=== PATIENT | male | born 1980 | race Caucasian/White ===

== ENCOUNTER 2017-05-29 16:42 | Emergency (ER) | payer MEDICAID | END 2017-05-29 17:00 | disposition short-term general hospital (02) | LOC: ER 16:42 | DX: R19.7 Diarrhea, unspecified (principal) ==

== ENCOUNTER 2017-11-27 21:30 | Emergency (ER) | payer MEDICAID ==
--- NOTE | 2017-11-27 22:30 | ED Physician Chart ---
ED Chief Complaint/HPI - Patient Information Date Seen:: 11/27/17 Time Seen:: 22:15 Chief Complaint:: cough History of Present Illness:: Patient complains of cough, difficulty swallowing and decreased urinary stream for 4 days. Patient did not take his temperature. Allergies:: Allergies Allergy/AdvReac Type Severity Reaction Status Date / Time amoxicillin Allergy Verified 08/16/16 16:24 azithromycin Allergy Verified 08/16/16 16:24 escitalopram [From Lexapro] Allergy Verified 08/16/16 16:24 lorazepam Allergy Verified 08/16/16 16:24 sulfamethizole Allergy Verified 08/16/16 16:24 Vitals:: Vital Signs - 8 hr 11/27/17 21:30 Temp 98.3 F HR 80 RR 16 BP 113/72 O2 Sat % 100 Historian:: Patient Review:: Nurse's Note Reviewed ED Review of Systems - Review of Systems General/Constitutional: No fever, No chills Skin: No skin lesions Head: No headache Eyes: No loss of vision ENT: No earache, Other (difficulty swallowing) Neck: No neck pain Cardio Vascular: No chest pain, No palpitations Pulmonary: No SOB, Cough GI: No nausea, No vomiting, No diarrhea G/U: No dysuria, No frequency, No nacturia Musculoskeletal: No bone or joint pain Endocrine: Other (decreased urinary stream) Psychiatric: No prior psych history Family Medical History - Family Member Mother History Unknown: Yes ED Physical Exam - Physical Examination General/Constitutional: Well-developed, well-nourished, Alert, No distress Head: Atraumatic Eyes: Lids, conjuctiva normal, PERRL Skin: Nl inspection, No rash, No skin lesions, No ecchymosis ENMT: External ears, nose nl, TM canals nl Neck: No nuchal rigidity Respiratory: Nl effort/Exclusion, Clear to Auscultation Cardio Vascular: RRR, No murmur, gallop, rubs GI: No tenderness/rebounding/guarding, No organomegaly : No CVA tenderness Extremities: Normal digits & nails Neuro/Psych: No focal deficits Misc: No paraspinal tenderness ED Labs/Radiology/EKG Results - Lab Results Results: Laboratory Results - last 24 hr 11/27/17 11/27/17 11/27/17 22:30 22:38 22:38 WBC 7.2 RBC 4.90 Hgb 14.2 Hct 42.8 MCV 87.4 MCH 29.0 MCHC Differential 33.2 RDW 13.0 Plt Count 171 MPV 7.3 Sodium 134 L Potassium 4.2 Chloride 106 Carbon Dioxide 19.9 L Anion Gap 12.3 BUN 26 H Creatinine 1.6 H Est GFR ( Amer) > 60.0 Est GFR (Non-Af Amer) 51.4 BUN/Creatinine Ratio 16.3 Glucose 119 H Calcium 9.4 Magnesium 1.8 L Urine Source CLEAN C Urine Color YELLOW Urine Clarity CLEAR Urine pH 7.5 Ur Specific [place] 1.010 Urine Protein NEGATIVE Urine Glucose (UA) NEGATIVE Urine Ketones NEGATIVE Urine Blood NEGATIVE Urine Nitrate NEGATIVE Urine Bilirubin NEGATIVE Urine Urobilinogen 0.2 Ur Leukocyte Esterase NEGATIVE Urine RBC NONE SEEN Urine WBC 0-2 Ur Epithelial Cells RARE Urine Bacteria FEW - Radiology Results Results: Chest x-ray negative ED Septic Shock - . Is Septic Shock (SBP<90, OR Lactate>4 mmol\L) present?: No - <6hrs of presentation: Vital Signs: Vital Signs - 8 hr 11/27/17 21:30 Temp 98.3 F HR 80 RR 16 BP 113/72 O2 Sat % 100 ED Reassessment (Disposition) - Reassessment Reassessment Condition:: Unchanged - Diagnosis Diagnosis:: Acute viral syndrome - Aftercare/Follow up Instructions Aftercare/Follow-Up Instructions:: Refer to Discharge Instructions - Patient Disposition Discharge/Transfer:: Home Condition at Disposition:: Stable, Unchanged
[2017-11-27 22:47] LABS: HEMATOCRIT 42.8 % (41.0-60); HEMOGLOBIN 14.2 gm/dL (12-16); MEAN CELL VOLUME 87.4 fl (80-99); MEAN CORPUSCULAR HGB CONC 33.2 pg (28.0-36.0); MEAN PLATELET VOLUME 7.3 fl; PLATELET COUNT 171 Th/cmm (150-400); WHITE BLOOD COUNT 7.2 Th/cmm (4.8-10.8)
[2017-11-27 22:47] LABS: URINE MICROSCOPIC INDICATED? YES; URINE SOURCE CLEAN C
[2017-11-27 23:01] LABS: ANION GAP 12.3 (7.0-16.0); BUN - UREA NITROGEN 26 mg/dL (7-25); CALCIUM SERUM 9.4 mg/dL (8.6-10.3); CARBON DIOXIDE 19.9 mEq/L (21.0-31.0); CHLORIDE 106 mEq/L (98-107); CREATININE - SERUM 1.6 mg/dL (0.7-1.3); GFR AFRICAN-AMERICAN > 60.0 ml/min (>90); GFR NON AFRICAN-AMERICAN 51.4 ml/min; GLUCOSE 119 mg/dL (70-105); MAGNESIUM 1.8 mg/dL (1.9-2.7); POTASSIUM SERUM 4.2 mEq/L (3.5-5.1); SODIUM SERUM 134 mEq/L (136-145)
[2017-11-27 23:05] LABS: URINE BILIRUBIN NEGATIVE (NEGATIVE); URINE BLOOD NEGATIVE (NEGATIVE); URINE GLUCOSE (UA) NEGATIVE (NEGATIVE); URINE KETONE NEGATIVE (NEGATIVE); URINE LEUKOCYTE ESTERASE NEGATIVE (NEGATIVE); URINE NITRATE NEGATIVE (NEGATIVE); URINE PH 7.5 (4.6 - 8.0); URINE PROTEIN NEGATIVE (NEGATIVE); URINE UROBILINOGEN 0.2 E.U./dL (0.2 - 1.0)
[2017-11-27 23:07] LABS: URINE BACTERIA FEW /hpf (NONE SEEN); URINE CLARITY CLEAR (CLEAR); URINE COLOR YELLOW; URINE EPITHELIAL CELLS RARE /lpf (FEW); URINE RBC NONE SEEN /hpf (0-5); URINE WBC 0-2 /hpf (0-5)
[2017-11-27 23:28] LABS: BAND NEUTROPHILE 2 % (0-10); EOSINOPHIL 1 % (0-5); LYMPHOCYTE 8 % (20-50); MONOCYTE 2 % (2-10); NEUTROPHILS 87 % (40-80); PLATELET ESTIMATE ADEQUATE (NORMAL); TOTAL CELLS COUNTED 100
--- NOTE | 2017-11-28 08:23 | Diagnostic Imaging Report ---
CHEST X-RAY: AP view INDICATION: Cough COMPARISON: None FINDINGS: Mild increased right basal lung markings are noted. No focal consolidation or effusions. Heart size is normal. Osseous structures are intact. Gas distended stomach is noted. IMPRESSION: Mild increased right basal lung markings favoring atelectatic changes. No focal consolidation is identified.
== END 2017-11-27 23:15 | disposition home or self-care (01) ==
LOC: ER 21:30
DX: B34.9 Viral infection, unspecified (principal); Z88.1 Allergy status to other antibiotic agents; Z88.2 Allergy status to sulfonamides; Z88.8 Allergy status to other drugs, medicaments and biological substances
CPT/HCPCS: 36415-UA; 71045-TC; 80048-TC; 81001-TC; 83735-TC; 85007-TC; 85027-TC

== ENCOUNTER 2018-01-22 20:18 | Emergency (ER) | payer MEDICAID ==
[2018-01-22 21:08] LABS: % BASOPHILS 1.5 % (0.0-2.0); % EOSINOPHILS 0.6 % (0.0-5.0); % LYMPHOCYTES 15.8 % (20.0-50.0); % MONOCYTES 9.2 % (2.0-10.0); % NEUTROPHILS 72.9 % (40.0-80.0); BASOPHILE ABSOLUTE 0.1 Th/cumm (0-0.2); HEMATOCRIT 44.7 % (41.0-60); HEMOGLOBIN 14.9 gm/dL (12-16); LYMPHOCYTE ABSOLUTE 0.9 Th/cmm (1.5-3.0); MEAN CELL VOLUME 85.5 fl (80-99); MEAN CORPUSCULAR HEMOGLOBIN 28.4 pg (26.0-30.0); MEAN CORPUSCULAR HGB CONC 33.2 pg (28.0-36.0); MEAN PLATELET VOLUME 7.6 fl; MONOCYTE ABSOLUTE 0.5 Th/cmm (0.3-1.0); PLATELET COUNT 185 Th/cmm (150-400); RED BLOOD COUNT 5.23 Mil/cmm (4.30-5.70); RED CELL DISTRIBUTION WIDTH 12.8 % (11.5-20.0); WHITE BLOOD COUNT 5.5 Th/cmm (4.8-10.8)
[2018-01-22 21:21] LABS: ALB/GLOB RATIO 1.8 (1.0-1.8); ANION GAP 14.4 (7.0-16.0); CALCIUM SERUM 10.1 mg/dL (8.6-10.3); CARBON DIOXIDE 19.2 mEq/L (21.0-31.0); CREATININE - SERUM 1.7 mg/dL (0.7-1.3); GFR NON AFRICAN-AMERICAN 47.9 ml/min; POTASSIUM SERUM 3.6 mEq/L (3.5-5.1); TOTAL PROTEIN,SERUM 7.8 gm/dL (6.0-8.3)
[2018-01-22 21:34] LABS: URINE MICROSCOPIC INDICATED? YES; URINE SOURCE CLEAN C
[2018-01-22 21:35] LABS: URINE BILIRUBIN NEGATIVE (NEGATIVE); URINE BLOOD NEGATIVE (NEGATIVE); URINE GLUCOSE (UA) NEGATIVE (NEGATIVE); URINE KETONE NEGATIVE (NEGATIVE); URINE LEUKOCYTE ESTERASE NEGATIVE (NEGATIVE); URINE NITRATE NEGATIVE (NEGATIVE); URINE PROTEIN TRACE mg/dL (NEGATIVE); URINE UROBILINOGEN 0.2 E.U./dL (0.2 - 1.0)
[2018-01-22 21:50] LABS: URINE CLARITY CLEAR (CLEAR); URINE COLOR YELLOW
[2018-01-22 21:51] LABS: URINE BACTERIA NONE SEEN /hpf (NONE SEEN); URINE EPITHELIAL CELLS NONE SEEN /lpf (FEW); URINE RBC NONE SEEN /hpf (0-5); URINE WBC NONE SEEN /hpf (0-5)
--- NOTE | 2018-01-22 21:57 | ED Physician Chart ---
ED Chief Complaint/HPI - Patient Information Date Seen:: 01/22/18 Time Seen:: 20:30 Chief Complaint:: stomach gurgling sensation occasionally History of Present Illness:: location: abdomen quality: stomach gurgling sensation severity: mild duration: several months context: pt with onset of stomach gurgling sensation for last several months. says the symptoms come and go. sometimes affected by what he eats. no vomiting, no diarrhea. normal bowel movements. says that when the gurgling occurs he feels like he doesnt want to eat and then a few hours later it will subside and he returns to normal eating. pt reports he has had a renal transplant. and goes to his transplant physician regularly every 3 months. also has a local physician at [facility]. went to the clinic today and was not seen because he says the clinic was too busy so decided to come to the ER for physician examination. pt reports no pain or abdominal discomfort on arrival to ER but gives history above. pt would like to get his labs checked to see if there are any abnormalities. no fever, no chest pain, no SOB. no hematuria, no dysuria. pt eats a varied diet of meats and fast foods, etc. mod factors: none assoc s/s: none Allergies:: Allergies Allergy/AdvReac Type Severity Reaction Status Date / Time amoxicillin Allergy Verified 08/16/16 16:24 azithromycin Allergy Verified 08/16/16 16:24 escitalopram [From Lexapro] Allergy Verified 08/16/16 16:24 lorazepam Allergy Verified 08/16/16 16:24 sulfamethizole Allergy Verified 08/16/16 16:24 Vitals:: Vital Signs - 8 hr 01/22/18 20:24 Temp 98.4 F HR 79 RR 18 BP 122/76 O2 Sat % 97 Historian:: Patient Review:: Nurse's Note Reviewed ED Review of Systems - Review of Systems General/Constitutional: No fever, No chills, No weight loss, No weakness, No diaphoresis, No edema, No loss of appetite Skin: No skin lesions, No rash, No bruising Head: No headache, No light-headedness Eyes: No loss of vision, No pain, No diplopia ENT: No earache, No nasal drainage, No sore throat, No tinnitus Neck: No neck pain, No swelling, No thyromegaly, No stiffness, No mass noted Cardio Vascular: No chest pain, No palpitations, No PND, No orthopnea, No edema Pulmonary: No SOB, No cough, No sputum, No wheezing GI: No nausea, No vomiting, No diarrhea, No pain, No melena, No hematochezia, No constipation, No hematemesis, Other (stomach gurgling sensation occasionally. ) G/U: No dysuria, No frequency, No hematuria Musculoskeletal: No bone or joint pain, No back pain, No muscle pain Endocrine: No polyuria, No polydipsia Psychiatric: No prior psych history, No depression, No anxiety, No suicidal ideation Hematopoietic: No bruising, No lymphadenopathy Allergic/Immuno: No urticaria, No angioedema Neurological: No syncope, No focal symptoms, No weakness, No paresthesia, No headache, No seizure, No dizziness, No confusion, No vertigo ED Past Medical History - Past Medical History Past Medical History: Dyslipidemia, PUD/GERD Social History: Non Smoker, No Alcohol, No Drug Use, Surgical History: other (renal transplant) Psychiatricy History: None Medication: Reviewed Family Medical History - Family Member Mother History Unknown: Yes ED Physical Exam - Physical Examination General/Constitutional: Awake, Well-developed, well-nourished, Alert, No distress, GCS 15, Non-toxic appearing, Ambulatory Head: Atraumatic Eyes: Lids, conjuctiva normal, PERRL, EOMI Skin: Nl inspection, No rash, No skin lesions, No ecchymosis, Well hydrated, No lymphadenopathy ENMT: External ears, nose nl, Nasal exam nl, Lips, teeth, gums nl Neck: Nontender, Full ROM w/o pain, No JVD, No nuchal rigidity, No bruit, No mass, No stridor Respiratory: Nl effort/Exclusion, Clear to Auscultation, No Wheeze/Rhonchi/Rales Cardio Vascular: RRR, No murmur, gallop, rubs, NL S1 S2 GI: No tenderness/rebounding/guarding, No organomegaly, Normal BS's, Nondistended, No mass/bruits, No McBurney tenderness : No CVA tenderness Extremities: No tenderness or effusion, Full ROM, normal strength in all extremities, No edema, Normal digits & nails Neuro/Psych: Alert/oriented Misc: Normal back, No paraspinal tenderness ED Labs/Radiology/EKG Results - Lab Results Results: Laboratory Tests 01/22/18 01/22/18 01/22/18 20:58 20:58 21:25 WBC 5.5 RBC 5.23 Hgb 14.9 Hct 44.7 MCV 85.5 MCH 28.4 MCHC Differential 33.2 RDW 12.8 Plt Count 185 MPV 7.6 Neutrophils % 72.9 Lymphocytes % 15.8 L Monocytes % 9.2 Eosinophils % 0.6 Basophils % 1.5 Sodium 138 Potassium 3.6 Chloride 108 H Carbon Dioxide 19.2 L Anion Gap 14.4 BUN 32 H Creatinine 1.7 H Est GFR ( Amer) 58.0 Est GFR (Non-Af Amer) 47.9 BUN/Creatinine Ratio 18.8 Glucose 95 Calcium 10.1 Total Bilirubin 1.0 AST 10 L ALT 8 Alkaline Phosphatase 65 Total Protein 7.8 Albumin 5.0 Globulin 2.8 Albumin/Globulin Ratio 1.8 Urine Source CLEAN C Urine Color YELLOW Urine Clarity CLEAR Urine pH 7.0 Ur Specific [place] 1.015 Urine Protein TRACE Urine Glucose (UA) NEGATIVE Urine Ketones NEGATIVE Urine Blood NEGATIVE Urine Nitrate NEGATIVE Urine Bilirubin NEGATIVE Urine Urobilinogen 0.2 Ur Leukocyte Esterase NEGATIVE Urine RBC NONE SEEN Urine WBC NONE SEEN Ur Epithelial Cells NONE SEEN Urine Bacteria NONE SEEN ED Septic Shock - . Is Septic Shock (SBP<90, OR Lactate>4 mmol\L) present?: No - <6hrs of presentation: Vital Signs: Vital Signs - 8 hr 01/22/18 20:24 Temp 98.4 F HR 79 RR 18 BP 122/76 O2 Sat % 97 ED Reassessment (Disposition) - Reassessment Reassessment:: pt in stable condition while in the ER. no vomiting, or diarrhea. no nausea. normal abdominal exam. normal bowel sounds. no tenderness. pt with no abdominal pain while in ER. Reassessment Condition:: Unchanged - Diagnosis Diagnosis:: episodic dyspepsia - Aftercare/Follow up Instructions Aftercare/Follow-Up Instructions:: Refer to Discharge Instructions Notes:: pt is advised to try one week trial of no meat and no dairy products to see if his regular diet is attributable to his symptoms. pt is also advised to go to clinic for recheck tomorrow. return sooner to ER for any worsening - Patient Disposition Discharge/Transfer:: Home Condition at Disposition:: Stable
== END 2018-01-22 22:00 | disposition home or self-care (01) ==
LOC: ER 20:18
DX: R10.13 Epigastric pain (principal); E78.5 Hyperlipidemia, unspecified; K21.9 Gastro-esophageal reflux disease without esophagitis; Z87.11 Personal history of peptic ulcer disease
CPT/HCPCS: 36415-UA; 80053-TC; 81001-TC; 85025-TC; Z7502

== ENCOUNTER 2018-01-25 16:54 | Emergency (ER) | payer MEDICAID ==
[2018-01-25] MEDS ORDERED: Sodium Chloride 0.9% 1,000 ML IV ONE (17:41)
--- NOTE | 2018-01-25 17:46 | ED Physician Chart ---
ED Chief Complaint/HPI - Patient Information Date Seen:: 01/25/18 Time Seen:: 17:30 Chief Complaint:: dehydration History of Present Illness:: Patient feels he is dehydrated although he does not provide any more specifics as for why. He does mention he has a decreased urinary stream and constipation. No vomiting. Allergies:: Allergies Allergy/AdvReac Type Severity Reaction Status Date / Time amoxicillin Allergy Verified 08/16/16 16:24 azithromycin Allergy Verified 08/16/16 16:24 escitalopram [From Lexapro] Allergy Verified 08/16/16 16:24 lorazepam Allergy Verified 08/16/16 16:24 sulfamethizole Allergy Verified 08/16/16 16:24 Vitals:: Vital Signs - 8 hr 01/25/18 17:04 Temp 98.2 F HR 82 RR 95 BP 109/80 O2 Sat % 96 Historian:: Patient Review:: Nurse's Note Reviewed, EMS run form Reviewed ED Review of Systems - Review of Systems General/Constitutional: No fever, No chills Skin: No skin lesions Head: No headache Eyes: No loss of vision ENT: No earache Neck: No neck pain, No swelling Cardio Vascular: No chest pain Pulmonary: No SOB GI: No nausea, No vomiting, Constipation G/U: No dysuria, Other (decreased urinary stream) Musculoskeletal: No bone or joint pain Endocrine: No polyuria Psychiatric: No prior psych history ED Past Medical History - Past Medical History Past Medical History: Other (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 ) Family History: Other (polycystic kidneys and hypertension) Social History: Non Smoker, No Alcohol Surgical History: other (dialysis shunt; renal transplant) Psychiatricy History: None Medication: Reviewed Family Medical History - Family Member Mother History Unknown: Yes ED Physical Exam - Physical Examination General/Constitutional: Well-developed, well-nourished, Alert, No distress Head: Atraumatic Eyes: Lids, conjuctiva normal, PERRL Skin: Nl inspection, No rash, No skin lesions, No ecchymosis ENMT: External ears, nose nl, Oropharynx nl, Tonsils nl Neck: No nuchal rigidity Respiratory: Nl effort/Exclusion, Clear to Auscultation, No Wheeze/Rhonchi/Rales Cardio Vascular: RRR, No murmur, gallop, rubs GI: No tenderness/rebounding/guarding Extremities: Normal digits & nails Neuro/Psych: Alert/oriented, No focal deficits ED Labs/Radiology/EKG Results - Lab Results Results: Laboratory Results - last 24 hr 01/25/18 01/25/18 17:55 17:55 WBC 5.2 RBC 5.10 Hgb 14.5 Hct 43.9 MCV 86.1 MCH 28.4 MCHC Differential 33.0 RDW 12.7 Plt Count 171 MPV 7.6 Neutrophils % 73.1 Lymphocytes % 14.6 L Monocytes % 9.3 Eosinophils % 1.4 Basophils % 1.6 Sodium 139 Potassium 3.7 Chloride 109 H Carbon Dioxide 18.7 L Anion Gap 15.0 BUN 26 H Creatinine 1.8 H Est GFR ( Amer) 54.3 Est GFR (Non-Af Amer) 44.9 BUN/Creatinine Ratio 14.4 Glucose 97 Calcium 10.1 ED Assessment - Assessment General Assessment: An intravenous line was started on the patient. However patient decided he wanted to leave before the liter of normal saline had infused. The intravenous line was removed and the patient left. ED Septic Shock - . Is Septic Shock (SBP<90, OR Lactate>4 mmol\L) present?: No - <6hrs of presentation: Vital Signs: Vital Signs - 8 hr 01/25/18 17:04 Temp 98.2 F HR 82 RR 95 BP 109/80 O2 Sat % 96 ED Reassessment (Disposition) - Reassessment Reassessment Condition:: Unchanged - Diagnosis Diagnosis:: Status post renal transplant; renal insufficiency - Patient Disposition Discharge/Transfer:: [place]/AWOL Condition at Disposition:: Stable, Unchanged
[2018-01-25 18:04] LABS: % BASOPHILS 1.6 % (0.0-2.0); % EOSINOPHILS 1.4 % (0.0-5.0); % LYMPHOCYTES 14.6 % (20.0-50.0); % MONOCYTES 9.3 % (2.0-10.0); % NEUTROPHILS 73.1 % (40.0-80.0); BASOPHILE ABSOLUTE 0.1 Th/cumm (0-0.2); EOSINOPHILE ABSOLUTE 0.1 Th/cmm (0.1-0.4); HEMATOCRIT 43.9 % (41.0-60); HEMOGLOBIN 14.5 gm/dL (12-16); LYMPHOCYTE ABSOLUTE 0.8 Th/cmm (1.5-3.0); MEAN CELL VOLUME 86.1 fl (80-99); MEAN CORPUSCULAR HEMOGLOBIN 28.4 pg (26.0-30.0); MEAN PLATELET VOLUME 7.6 fl; MONOCYTE ABSOLUTE 0.5 Th/cmm (0.3-1.0); NEUTROPHILE ABSOLUTE 3.7 Th/cmm (1.8-8.0); PLATELET COUNT 171 Th/cmm (150-400); RED CELL DISTRIBUTION WIDTH 12.7 % (11.5-20.0); WHITE BLOOD COUNT 5.2 Th/cmm (4.8-10.8)
[2018-01-25 18:17] LABS: CALCIUM SERUM 10.1 mg/dL (8.6-10.3); CARBON DIOXIDE 18.7 mEq/L (21.0-31.0); CREATININE - SERUM 1.8 mg/dL (0.7-1.3); GFR AFRICAN-AMERICAN 54.3 ml/min (>90); GFR NON AFRICAN-AMERICAN 44.9 ml/min; POTASSIUM SERUM 3.7 mEq/L (3.5-5.1)
== END 2018-01-25 19:15 | disposition left against medical advice (07) ==
LOC: ER 16:54
DX: N28.9 Disorder of kidney and ureter, unspecified (principal); Z94.0 Kidney transplant status
CPT/HCPCS: 36415-UA; 80048-TC; 85025-TC; J7030; Z7502

== ENCOUNTER 2018-06-08 18:58 | Emergency (ER) | payer MEDICAID ==
[2018-06-08 20:09] LABS: URINE SOURCE CLEAN C
[2018-06-08 20:23] LABS: ALB/GLOB RATIO 2.1 (1.0-1.8); ALBUMIN 4.6 gm/dL (4.2-5.5); ALKALINE PHOSPHATASE 67 U/L (34-104); ANION GAP 13.2 (7.0-16.0); BILIRUBIN,TOTAL 0.7 mg/dL (0.3-1.0); BUN - UREA NITROGEN 22 mg/dL (7-25); CALCIUM SERUM 9.1 mg/dL (8.6-10.3); CARBON DIOXIDE 19.5 mEq/L (21.0-31.0); CHLORIDE 110 mEq/L (98-107); CREATININE - SERUM 1.6 mg/dL (0.7-1.3); GFR AFRICAN-AMERICAN > 60.0 ml/min (>90); GFR NON AFRICAN-AMERICAN 51.1 ml/min; GLUCOSE 117 mg/dL (70-105); MAGNESIUM 1.7 mg/dL (1.9-2.7); PHOSPHOROUS 2.2 mg/dL (2.5-5.0); POTASSIUM SERUM 3.7 mEq/L (3.5-5.1); SGOT 9 U/L (13-39); SGPT/ALT 7 U/L (7-52); SODIUM SERUM 139 mEq/L (136-145); TOTAL PROTEIN,SERUM 6.8 gm/dL (6.0-8.3)
[2018-06-08 20:29] LABS: AMPHETAMINE URINE NEGATIVE (NEGATIVE); BARBITURATES URINE NEGATIVE (NEGATIVE); BENZODIAZEPINES QUAL URINE NEGATIVE (NEGATIVE); CANNABINOID THC NEGATIVE (NEGATIVE); COCAINE METABOLITE QUAL URINE NEGATIVE (NEGATIVE); METHADONE URINE NEGATIVE (NEGATIVE); METHAMPHETAMINES QUAL URINE NEGATIVE (NEGATIVE); OPIATES (MORPHINE) QUAL. URINE NEGATIVE (NEGATIVE); PHENCYCLIDINE (PCP) URINE NEGATIVE (NEGATIVE); TRICYCLICS (TCA) QUAL. URINE NEGATIVE (NEGATIVE); URINE BILIRUBIN NEGATIVE (NEGATIVE); URINE BLOOD NEGATIVE (NEGATIVE); URINE CLARITY CLEAR (CLEAR); URINE COLOR YELLOW; URINE GLUCOSE (UA) NEGATIVE (NEGATIVE); URINE KETONE NEGATIVE (NEGATIVE)
[2018-06-08 20:30] LABS: URINE LEUKOCYTE ESTERASE NEGATIVE (NEGATIVE); URINE MICROSCOPIC INDICATED? NO; URINE NITRATE NEGATIVE (NEGATIVE); URINE PH 7.5 (4.6 - 8.0); URINE PROTEIN NEGATIVE (NEGATIVE); URINE UROBILINOGEN 0.2 E.U./dL (0.2 - 1.0)
[2018-06-08] MEDS ORDERED: Lactated Ringer 1,000 ML IV ONE (20:31)
[2018-06-08 21:24] LABS: HEMATOCRIT 39.5 % (41.0-60); HEMOGLOBIN 13.3 gm/dL (12-16); MEAN CELL VOLUME 86.4 fl (80-99); MEAN CORPUSCULAR HEMOGLOBIN 29.2 pg (26.0-30.0); MEAN CORPUSCULAR HGB CONC 33.8 pg (28.0-36.0); MEAN PLATELET VOLUME 7.1 fl; PLATELET COUNT 169 Th/cmm (150-400); RED BLOOD COUNT 4.57 Mil/cmm (4.30-5.70); RED CELL DISTRIBUTION WIDTH 13.1 % (11.5-20.0)
[2018-06-08 21:25] LABS: BAND NEUTROPHILE 1 % (0-10); BASOPHIL 0 % (0-3); EOSINOPHIL 0 % (0-5); LYMPHOCYTE 11 % (20-50); MONOCYTE 6 % (2-10); NEUTROPHILS 82 % (40-80); PLATELET ESTIMATE ADEQUATE (NORMAL); PLATELET MORPHOLOGY NORMAL (NORMAL)
[2018-06-08] MEDS ORDERED: Maalox 30 mL Cup PO ONE (21:27)
[2018-06-08] MEDS ORDERED: Maalox 30 mL Cup ONE (21:44)
--- NOTE | 2018-06-08 22:54 | ED Physician Chart ---
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 He says that every so often. Allergies:: Allergies Allergy/AdvReac Type Severity Reaction Status Date / Time amoxicillin Allergy Verified 08/16/16 16:24 azithromycin Allergy Verified 08/16/16 16:24 escitalopram [From Lexapro] Allergy Verified 08/16/16 16:24 lorazepam Allergy Verified 08/16/16 16:24 sulfamethizole Allergy Verified 08/16/16 16:24 Vitals:: Vital Signs - 8 hr 06/08/18 19:10 Temp 98.1 F HR 77 RR 18 BP 135/66 O2 Sat % 97 ED Review of Systems - Review of Systems General/Constitutional: No fever, No chills, No weight loss, Weakness, No diaphoresis, No edema, No loss of appetite Skin: No skin lesions, No rash, No bruising Head: No headache, No light-headedness Eyes: No loss of vision, No pain, No diplopia ENT: No earache, No nasal drainage, No sore throat, No tinnitus Neck: No neck pain, No swelling, No thyromegaly, No stiffness, No mass noted Cardio Vascular: No chest pain, No palpitations, No PND, No orthopnea, No edema Pulmonary: No SOB, No cough, No sputum, No wheezing GI: No nausea, No vomiting, No diarrhea, No pain, No melena, No hematochezia, No constipation, No hematemesis G/U: No dysuria, No frequency, No hematuria Musculoskeletal: No bone or joint pain, No back pain, No muscle pain Endocrine: No polyuria, No polydipsia Psychiatric: No prior psych history, No depression, No anxiety, No suicidal ideation Hematopoietic: No bruising, No lymphadenopathy Allergic/Immuno: No urticaria, No angioedema Neurological: No syncope, No focal symptoms, No weakness, No paresthesia, No headache, No seizure, No dizziness, No confusion, No vertigo Family Medical History - Family Member Mother History Unknown: Yes ED Physical Exam - Physical Examination General/Constitutional: Awake, Well-developed, well-nourished, Alert, No distress, GCS 15, Non-toxic appearing, Ambulatory Head: Atraumatic Eyes: Lids, conjuctiva normal, PERRL, EOMI Skin: Nl inspection, No rash, No skin lesions, No ecchymosis, No lymphadenopathy ENMT: External ears, nose nl, Nasal exam nl, Lips, teeth, gums nl Neck: Nontender, Full ROM w/o pain, No JVD, No nuchal rigidity, No bruit, No mass, No stridor Respiratory: Nl effort/Exclusion, Clear to Auscultation, No Wheeze/Rhonchi/Rales Cardio Vascular: RRR, No murmur, gallop, rubs, NL S1 S2 GI: No tenderness/rebounding/guarding, No organomegaly, No hernia, Normal BS's, Nondistended, No mass/bruits, No McBurney tenderness Other GI comments:: right lower groin scar from kidney transplant. : No CVA tenderness Extremities: No tenderness or effusion, Full ROM, normal strength in all extremities, No edema, Normal digits & nails Neuro/Psych: Alert/oriented, DTR's symmetric, Normal sensory exam, Normal motor strength, Judgement/insight normal, Mood normal, Normal gait, No focal deficits Misc: Normal back, No paraspinal tenderness ED Labs/Radiology/EKG Results - Lab Results Results: Laboratory Tests 06/08/18 06/08/18 06/08/18 19:56 19:56 20:00 WBC 5.0 RBC 4.57 Hgb 13.3 Hct 39.5 L MCV 86.4 MCH 29.2 MCHC Differential 33.8 RDW 13.1 Plt Count 169 MPV 7.1 Add Manual Diff YES Band Neutrophils % 1 Neutrophils (Manual) 82 H Lymphocytes 11 L Monocytes 6 Eosinophils 0 Basophils 0 Platelet Estimate ADEQUATE Platelet Morphology NORMAL RBC Morph Micro Appear NORMAL Sodium 139 Potassium 3.7 Chloride 110 H Carbon Dioxide 19.5 L Anion Gap 13.2 BUN 22 Creatinine 1.6 H Est GFR ( Amer) > 60.0 Est GFR (Non-Af Amer) 51.1 BUN/Creatinine Ratio 13.8 Glucose 117 H Calcium 9.1 Phosphorus 2.2 L Magnesium 1.7 L Total Bilirubin 0.7 AST 9 L ALT 7 Alkaline Phosphatase 67 Total Protein 6.8 Albumin 4.6 Globulin 2.2 Albumin/Globulin Ratio 2.1 H Urine Source CLEAN C Urine Color YELLOW Urine Clarity CLEAR Urine pH 7.5 Ur Specific [place] 1.015 Urine Protein NEGATIVE Urine Glucose (UA) NEGATIVE Urine Ketones NEGATIVE Urine Blood NEGATIVE Urine Nitrate NEGATIVE Urine Bilirubin NEGATIVE Urine Urobilinogen 0.2 Ur Leukocyte Esterase NEGATIVE Urine Opiates Screen Urine Methadone Screen Ur Barbiturates Screen Ur Tricyclics Screen Ur Phencyclidine Scrn Amphetamines Screen U Methamphetamines Scrn U Benzodiazepines Scrn U Cocaine Metab Screen U Cannabinoids Screen 06/08/18 20:00 WBC RBC Hgb Hct MCV MCH MCHC Differential RDW Plt Count MPV Add Manual Diff Band Neutrophils % Neutrophils (Manual) Lymphocytes Monocytes Eosinophils Basophils Platelet Estimate Platelet Morphology RBC Morph Micro Appear Sodium Potassium Chloride Carbon Dioxide Anion Gap BUN Creatinine Est GFR ( Amer) Est GFR (Non-Af Amer) BUN/Creatinine Ratio Glucose Calcium Phosphorus Magnesium Total Bilirubin AST ALT Alkaline Phosphatase Total Protein Albumin Globulin Albumin/Globulin Ratio Urine Source Urine Color Urine Clarity Urine pH Ur Specific [place] Urine Protein Urine Glucose (UA) Urine Ketones Urine Blood Urine Nitrate Urine Bilirubin Urine Urobilinogen Ur Leukocyte Esterase Urine Opiates Screen NEGATIVE Urine Methadone Screen NEGATIVE Ur Barbiturates Screen NEGATIVE Ur Tricyclics Screen NEGATIVE Ur Phencyclidine Scrn NEGATIVE Amphetamines Screen NEGATIVE U Methamphetamines Scrn NEGATIVE U Benzodiazepines Scrn NEGATIVE U Cocaine Metab Screen NEGATIVE U Cannabinoids Screen NEGATIVE ED Assessment - Assessment General Assessment: patient feels alot better after IV fluids. He has already urinated again. ED Septic Shock - . Is Septic Shock (SBP<90, OR Lactate>4 mmol\L) present?: No - <6hrs of presentation: Vital Signs: Vital Signs - 8 hr 06/08/18 19:10 Temp 98.1 F HR 77 RR 18 BP 135/66 O2 Sat % 97 ED Reassessment (Disposition) - Reassessment Reassessment Condition:: Improved - Diagnosis Diagnosis:: Dehydration Renal insufficiency with a slightly elevated creatinine of 1.6 (normal is up to 1.3) Low phosphorous Low magnesium - Aftercare/Follow up Instructions Aftercare/Follow-Up Instructions:: Refer to Discharge Instructions Notes:: please follow up with your primary care physician. Medication Prescribed:: none - Patient Disposition Discharge/Transfer:: Home Condition at Disposition:: Stable, Improved
== END 2018-06-08 23:55 | disposition home or self-care (01) ==
LOC: ER 18:58
DX: E86.0 Dehydration (principal); E61.2 Magnesium deficiency; E83.30 Disorder of phosphorus metabolism, unspecified; N28.9 Disorder of kidney and ureter, unspecified; R79.89 Other specified abnormal findings of blood chemistry; Z88.0 Allergy status to penicillin; Z88.2 Allergy status to sulfonamides; Z88.8 Allergy status to other drugs, medicaments and biological substances
CPT/HCPCS: 36415-UA; 80053-TC; 80307; 81003-TC; 83735-TC; 84100-TC; 85007-TC; 85025-TC; Z7502; Z7610

== ENCOUNTER 2018-06-13 19:24 | Emergency (ER) | payer MEDICAID ==
[2018-06-13] MEDS ORDERED: Sodium Chloride 0.9% 1,000 ML IV ONE (19:46)
--- NOTE | 2018-06-13 19:52 | ED Physician Chart ---
ED Chief Complaint/HPI - Patient Information Date Seen:: 06/13/18 Time Seen:: 19:30 Chief Complaint:: Weakness History of Present Illness:: onset x 3 days of generalized weakness and fatigue; pt denies trauma, LOC, ALOC , AMS, dizziness, paresthesias, vertigo, E/As, S/T, neck pain, cough, C/P, SOB, Abd. Pain, A/N/V/D/C, fever, chills, or urinary s/s; pt is eating and is urinating well; pt last urinated 1/2 hour [facility] Allergies:: Allergies Allergy/AdvReac Type Severity Reaction Status Date / Time amoxicillin Allergy Verified 06/13/18 19:42 azithromycin Allergy Verified 06/13/18 19:42 escitalopram [From Lexapro] Allergy Verified 06/13/18 19:42 lorazepam Allergy Verified 06/13/18 19:42 sulfamethizole Allergy Verified 06/13/18 19:42 Vitals:: Vital Signs - 8 hr 06/13/18 19:30 Temp 98.2 F HR 72 RR 18 BP 126/77 O2 Sat % 95 Historian:: Patient Review:: Nurse's Note Reviewed ED Review of Systems - Review of Systems General/Constitutional: No fever, No chills, No weight loss, Weakness, No diaphoresis, No edema, No loss of appetite Skin: No skin lesions, No rash, No bruising Head: No headache, No light-headedness Eyes: No loss of vision, No pain, No diplopia ENT: No earache, No nasal drainage, No sore throat, No tinnitus Neck: No neck pain, No swelling, No thyromegaly, No stiffness, No mass noted Cardio Vascular: No chest pain, No palpitations, No PND, No orthopnea, No edema Pulmonary: No SOB, No cough, No sputum, No wheezing GI: No nausea, No vomiting, No diarrhea, No pain, No melena, No hematochezia, No constipation, No hematemesis G/U: No dysuria, No frequency, No hematuria, No nacturia Musculoskeletal: No bone or joint pain, No back pain, No muscle pain Endocrine: No polyuria, No polydipsia Psychiatric: No prior psych history, No depression, No anxiety, No suicidal ideation, No homicidal ideation, No auditory hallucination, No visual hallucination Hematopoietic: No bruising, No lymphadenopathy Allergic/Immuno: No urticaria, No angioedema Neurological: No syncope, No focal symptoms, Weakness, No paresthesia, No headache, No seizure, No dizziness, No confusion, No vertigo ED Past Medical History - Past Medical History Obtainable: Yes Past Medical History: HTN, Dyslipidemia, ESRD Family History: HTN Social History: Non Smoker, No Alcohol, No Drug Use, Single Surgical History: other (Renal Transplant) Psychiatricy History: None Medication: Reviewed Family Medical History - Family Member Mother History Unknown: Yes ED Physical Exam - Physical Examination General/Constitutional: Awake, Well-developed, well-nourished, Alert, No distress, GCS 15, Non-toxic appearing, Ambulatory Head: Atraumatic Eyes: Lids, conjuctiva normal, PERRL, EOMI Skin: Nl inspection, No rash, No skin lesions, No ecchymosis, Well hydrated, No lymphadenopathy ENMT: External ears, nose nl, TM canals nl, Nasal exam nl, Lips, teeth, gums nl , Oropharynx nl, Tonsils nl Neck: Nontender, Full ROM w/o pain, No JVD, No nuchal rigidity, No bruit, No mass, No stridor Other Neck comments:: supple; no meningeal signs; no cervical tenderness; no bruits Respiratory: Nl effort/Exclusion, Clear to Auscultation, No Wheeze/Rhonchi/Rales Cardio Vascular: RRR, No murmur, gallop, rubs, NL S1 S2, Carotid/Femoral/Distal pulses equal bilaterally GI: No tenderness/rebounding/guarding, No organomegaly, No hernia, Normal BS's, Nondistended, No mass/bruits, No McBurney tenderness, Rectum exam nl Other GI comments:: no pulsatile masses : No CVA tenderness Extremities: No tenderness or effusion, Full ROM, normal strength in all extremities, No edema, Normal digits & nails Neuro/Psych: Alert/oriented, DTR's symmetric, Normal sensory exam, Normal motor strength, Judgement/insight normal, Mood normal, Normal gait, No focal deficits Other Neuro/Psych comments:: no focal signs Misc: Normal back, No paraspinal tenderness ED Labs/Radiology/EKG Results - Lab Results Comments:: Reviewed - Radiology Results Comments:: deferred by pt - EKG Interpretations EKG Time:: 20:10 Rate & Rhythm: 72; NSR Comments:: non-specific st-t changes ED Septic Shock - . Is Septic Shock (SBP<90, OR Lactate>4 mmol\L) present?: No - <6hrs of presentation: Vital Signs: Vital Signs - 8 hr 06/13/18 19:30 Temp 98.2 F HR 72 RR 18 BP 126/77 O2 Sat % 95 ED Reassessment (Disposition) - Reassessment Reassessment:: pt tolerated po fluids well in ER; pt chose to sign out AMA and eloped; pt is asymptomatic upon discharge Reassessment Condition:: Improved - Diagnosis Diagnosis:: Weakness; Fatigue; Viral Syndrome; N/V/D; AGE; Gastritis; - Aftercare/Follow up Instructions Aftercare/Follow-Up Instructions:: Counseled pt regarding lab results/diagnosis & need follow up, Refer to Discharge Instructions, Counseled pt & family regarding lab results/diagnosis & need follow up - Patient Disposition Discharge/Transfer:: Against Medical Advice Condition at Disposition:: Stable, Improved (RTER prn if existing s/s reoccur and/or get worse and/or any other new s/s occur; ACIs given for all above Dx; Clear Liquid Diet; Fluids; Refer to GI/ Specialists/Emergency Medical Service Manager [facility]; F/U with PMD in one day or prn; RTER prn if concerned)
[2018-06-13 20:13] LABS: % BASOPHILS 0.6 % (0.0-2.0); % EOSINOPHILS 0.7 % (0.0-5.0); % LYMPHOCYTES 11.2 % (20.0-50.0); % NEUTROPHILS 81.5 % (40.0-80.0); HEMATOCRIT 40.5 % (41.0-60); HEMOGLOBIN 13.5 gm/dL (12-16); LYMPHOCYTE ABSOLUTE 0.6 Th/cmm (1.5-3.0); MEAN CELL VOLUME 86.2 fl (80-99); MEAN CORPUSCULAR HEMOGLOBIN 28.7 pg (26.0-30.0); MEAN CORPUSCULAR HGB CONC 33.3 pg (28.0-36.0); MEAN PLATELET VOLUME 7.2 fl; MONOCYTE ABSOLUTE 0.3 Th/cmm (0.3-1.0); NEUTROPHILE ABSOLUTE 4.6 Th/cmm (1.8-8.0); PLATELET COUNT 185 Th/cmm (150-400); RED CELL DISTRIBUTION WIDTH 12.9 % (11.5-20.0); WHITE BLOOD COUNT 5.5 Th/cmm (4.8-10.8)
[2018-06-13 20:24] LABS: INR 1.05 (0.5-1.4); PROTHROMBIN TIME (TEST) 10.9 SECONDS (9.5-11.5)
[2018-06-13 20:31] LABS: ALB/GLOB RATIO 1.9 (1.0-1.8); ALBUMIN 4.8 gm/dL (4.2-5.5); ALKALINE PHOSPHATASE 68 U/L (34-104); ANION GAP 12.7 (7.0-16.0); BILIRUBIN,TOTAL 0.7 mg/dL (0.3-1.0); BUN - UREA NITROGEN 26 mg/dL (7-25); CALCIUM SERUM 9.6 mg/dL (8.6-10.3); CARBON DIOXIDE 20.1 mEq/L (21.0-31.0); CHLORIDE 109 mEq/L (98-107); CHOLESTEROL 134 mg/dL (<200); CREATININE - SERUM 1.5 mg/dL (0.7-1.3); CREATININE KINASE 67 U/L (30-223); GFR AFRICAN-AMERICAN > 60.0 ml/min (>90); GFR NON AFRICAN-AMERICAN 55.1 ml/min; GLUCOSE 112 mg/dL (70-105); HDL -HIGH DENSITY LIPOPROTEIN 34 mg/dL (23-92); POTASSIUM SERUM 3.8 mEq/L (3.5-5.1); SGOT 10 U/L (13-39); SGPT/ALT 9 U/L (7-52); SODIUM SERUM 138 mEq/L (136-145); TOTAL PROTEIN,SERUM 7.3 gm/dL (6.0-8.3); TRIGLYCERIDES 82 mg/dL (<150)
[2018-06-13 20:33] LABS: AMYLASE SERUM 67 U/L (29-103); LIPASE 49 U/L (11-82)
[2018-06-13 22:10] LABS: URINE SOURCE CLEAN C
[2018-06-13 22:12] LABS: URINE BILIRUBIN NEGATIVE (NEGATIVE); URINE BLOOD NEGATIVE (NEGATIVE); URINE GLUCOSE (UA) NEGATIVE (NEGATIVE); URINE KETONE NEGATIVE (NEGATIVE); URINE LEUKOCYTE ESTERASE NEGATIVE (NEGATIVE); URINE NITRATE NEGATIVE (NEGATIVE); URINE PROTEIN NEGATIVE (NEGATIVE); URINE UROBILINOGEN 0.2 E.U./dL (0.2 - 1.0)
[2018-06-13 22:22] LABS: URINE CLARITY CLEAR (CLEAR); URINE COLOR YELLOW
[2018-06-13 22:36] LABS: URINE MICROSCOPIC INDICATED? NO
[2018-06-13] MEDS ORDERED: Sodium Bicarbonate 8.4% 50mEq Vial ONE (22:52)
== END 2018-06-13 22:45 | disposition home or self-care (01) ==
LOC: ER 19:24
DX: K52.9 Noninfective gastroenteritis and colitis, unspecified (principal); K29.70 Gastritis, unspecified, without bleeding; B34.9 Viral infection, unspecified; R53.83 Other fatigue; I12.0 Hypertensive chronic kidney disease with stage 5 chronic kidney disease or end stage renal disease; N18.6 End stage renal disease; E78.5 Hyperlipidemia, unspecified; Z88.0 Allergy status to penicillin; Z88.1 Allergy status to other antibiotic agents; Z88.2 Allergy status to sulfonamides; Z88.8 Allergy status to other drugs, medicaments and biological substances
CPT/HCPCS: 99285; 96361; 96374; 94760; 93005; 84484; 83880; 36415; 85025; 85610; 81003; 82150; 82550; 83690; 80053; 80061; J2405; 90799

== ENCOUNTER 2018-09-02 15:16 | Emergency (ER) | payer MEDICAID ==
[2018-09-02] MEDS ORDERED: Lactated Ringer 1,000 ML IV ONE ×2 (15:51→16:43)
[2018-09-02 16:06] LABS: % EOSINOPHILS 1.2 % (0.0-5.0); % LYMPHOCYTES 8.5 % (20.0-50.0); % MONOCYTES 8.6 % (2.0-10.0); % NEUTROPHILS 80.7 % (40.0-80.0); BASOPHILE ABSOLUTE 0.1 Th/cumm (0-0.2); EOSINOPHILE ABSOLUTE 0.1 Th/cmm (0.1-0.4); HEMATOCRIT 40.3 % (41.0-60); HEMOGLOBIN 13.2 gm/dL (12-16); LYMPHOCYTE ABSOLUTE 0.4 Th/cmm (1.5-3.0); MEAN CELL VOLUME 87.1 fl (80-99); MEAN CORPUSCULAR HEMOGLOBIN 28.6 pg (26.0-30.0); MEAN CORPUSCULAR HGB CONC 32.8 pg (28.0-36.0); MEAN PLATELET VOLUME 7.2 fl; MONOCYTE ABSOLUTE 0.4 Th/cmm (0.3-1.0); NEUTROPHILE ABSOLUTE 4.1 Th/cmm (1.8-8.0); PLATELET COUNT 167 Th/cmm (150-400); RED BLOOD COUNT 4.63 Mil/cmm (4.30-5.70); RED CELL DISTRIBUTION WIDTH 12.7 % (11.5-20.0); WHITE BLOOD COUNT 5.1 Th/cmm (4.8-10.8)
[2018-09-02 16:22] LABS: ALB/GLOB RATIO 1.8 (1.0-1.8); ALBUMIN 4.4 gm/dL (4.2-5.5); ALKALINE PHOSPHATASE 55 U/L (34-104); ANION GAP 13.3 (7.0-16.0); BILIRUBIN,TOTAL 0.5 mg/dL (0.3-1.0); BUN - UREA NITROGEN 26 mg/dL (7-25); CALCIUM SERUM 9.6 mg/dL (8.6-10.3); CARBON DIOXIDE 23.2 mEq/L (21.0-31.0); CHLORIDE 108 mEq/L (98-107); CREATININE - SERUM 1.6 mg/dL (0.7-1.3); GFR AFRICAN-AMERICAN > 60.0 ml/min (>90); GFR NON AFRICAN-AMERICAN 51.1 ml/min; GLUCOSE 115 mg/dL (70-105); MAGNESIUM 1.6 mg/dL (1.9-2.7); PHOSPHOROUS 2.3 mg/dL (2.5-5.0); POTASSIUM SERUM 3.5 mEq/L (3.5-5.1); SGOT 10 U/L (13-39); SGPT/ALT 7 U/L (7-52); SODIUM SERUM 141 mEq/L (136-145); TOTAL PROTEIN,SERUM 6.9 gm/dL (6.0-8.3)
[2018-09-02] MEDS ORDERED: Maalox 30 mL Cup PO ONE (16:42)
[2018-09-02] MEDS ORDERED: Sodium Phos / Potassium Phos 1.25 GM PACK PO ONE (16:46)
[2018-09-02 16:57] LABS: URINE SOURCE CLEAN C
[2018-09-02 17:04] LABS: URINE BILIRUBIN NEGATIVE (NEGATIVE); URINE BLOOD NEGATIVE (NEGATIVE); URINE GLUCOSE (UA) NEGATIVE (NEGATIVE); URINE KETONE NEGATIVE (NEGATIVE); URINE LEUKOCYTE ESTERASE TRACE (NEGATIVE); URINE MICROSCOPIC INDICATED? YES; URINE NITRATE NEGATIVE (NEGATIVE); URINE PH 7.5 (4.6 - 8.0); URINE PROTEIN NEGATIVE (NEGATIVE); URINE UROBILINOGEN 0.2 E.U./dL (0.2 - 1.0)
[2018-09-02] MEDS ORDERED: Maalox 30 mL Cup ONE (17:07)
[2018-09-02 17:18] LABS: URINE CLARITY CLEAR (CLEAR); URINE COLOR YELLOW
[2018-09-02 17:20] LABS: URINE BACTERIA OCCASIONAL /hpf (NONE SEEN); URINE EPITHELIAL CELLS FEW /lpf (FEW); URINE RBC 0-2 /hpf (0-5); URINE WBC 0-2 /hpf (0-5)
--- NOTE | 2018-09-02 17:38 | ED Physician Chart ---
ED Chief Complaint/HPI - Patient Information Date Seen:: 09/02/18 Time Seen:: 15:24 Chief Complaint:: feels tired and dehydrated History of Present Illness:: feels tired and dehydrated in a renal transplant patient. no other complaints. comes in here regularly for IV fluids Allergies:: Allergies Allergy/AdvReac Type Severity Reaction Status Date / Time amoxicillin Allergy Verified 09/02/18 15:23 azithromycin Allergy Verified 09/02/18 15:23 escitalopram [From Lexapro] Allergy Verified 09/02/18 15:23 lorazepam Allergy Verified 09/02/18 15:23 sulfamethizole Allergy Verified 09/02/18 15:23 Vitals:: Vital Signs - 8 hr 09/02/18 09/02/18 09/02/18 15:24 15:48 15:52 Temp 98.2 F HR 84 RR 18 18 18 BP 114/82 123/75 127/72 O2 Sat % 96 97 98 09/02/18 09/02/18 15:57 17:18 Temp HR 87 RR 18 18 BP 120/75 137/80 O2 Sat % 79 97 Historian:: Patient Review:: Nurse's Note Reviewed ED Review of Systems - Review of Systems General/Constitutional: No fever, No chills, No weight loss, Weakness, No diaphoresis, No edema, No loss of appetite Skin: No skin lesions, No rash, No bruising Head: No headache, No light-headedness Eyes: No loss of vision, No pain, No diplopia ENT: No earache, No nasal drainage, No sore throat, No tinnitus Neck: No neck pain, No swelling, No thyromegaly, No stiffness, No mass noted Cardio Vascular: No chest pain, No palpitations, No PND, No orthopnea, No edema Pulmonary: No SOB, No cough, No sputum, No wheezing GI: No nausea, No vomiting, No diarrhea, No pain, No melena, No hematochezia, No constipation, No hematemesis G/U: No dysuria, No frequency, No hematuria Musculoskeletal: No bone or joint pain, No back pain, No muscle pain Endocrine: No polyuria, No polydipsia Psychiatric: No prior psych history, No depression, No anxiety, No suicidal ideation Hematopoietic: No bruising, No lymphadenopathy Allergic/Immuno: No urticaria, No angioedema Neurological: No syncope, No focal symptoms, No weakness, No paresthesia, No headache, No seizure, No dizziness, No confusion, No vertigo ED Past Medical History - Past Medical History Obtainable: Yes Past Medical History: Other (kidney transplant) Family Medical History - Family Member Mother History Unknown: Yes Ethnicity: ED Physical Exam - Physical Examination General/Constitutional: Awake, Well-developed, well-nourished, Alert, No distress, GCS 15, Non-toxic appearing Head: Atraumatic Eyes: Lids, conjuctiva normal, PERRL, EOMI ENMT: External ears, nose nl Respiratory: Nl effort/Exclusion, Clear to Auscultation, No Wheeze/Rhonchi/Rales Cardio Vascular: RRR, No murmur, gallop, rubs, NL S1 S2 GI: No tenderness/rebounding/guarding, No organomegaly, No hernia, Normal BS's, Nondistended, No mass/bruits : No CVA tenderness Neuro/Psych: Alert/oriented, Judgement/insight normal, Mood normal Misc: Normal back ED Labs/Radiology/EKG Results - Lab Results Results: Laboratory Tests 09/02/18 09/02/18 09/02/18 16:00 16:00 16:05 WBC 5.1 RBC 4.63 Hgb 13.2 Hct 40.3 L MCV 87.1 MCH 28.6 MCHC Differential 32.8 RDW 12.7 Plt Count 167 MPV 7.2 Neutrophils % 80.7 H Lymphocytes % 8.5 L Monocytes % 8.6 Eosinophils % 1.2 Basophils % 1.0 Sodium 141 Potassium 3.5 Chloride 108 H Carbon Dioxide 23.2 Anion Gap 13.3 BUN 26 H Creatinine 1.6 H Est GFR ( Amer) > 60.0 Est GFR (Non-Af Amer) 51.1 BUN/Creatinine Ratio 16.3 Glucose 115 H Calcium 9.6 Phosphorus 2.3 L Magnesium 1.6 L Total Bilirubin 0.5 AST 10 L ALT 7 Alkaline Phosphatase 55 Total Protein 6.9 Albumin 4.4 Globulin 2.5 Albumin/Globulin Ratio 1.8 Urine Source CLEAN C Urine Color YELLOW Urine Clarity CLEAR Urine pH 7.5 Ur Specific [place] 1.015 Urine Protein NEGATIVE Urine Glucose (UA) NEGATIVE Urine Ketones NEGATIVE Urine Blood NEGATIVE Urine Nitrate NEGATIVE Urine Bilirubin NEGATIVE Urine Urobilinogen 0.2 Ur Leukocyte Esterase TRACE H Urine RBC 0-2 H Urine WBC 0-2 Ur Epithelial Cells FEW Urine Bacteria OCCASIONAL Urine Mucus FEW ED Assessment - Assessment General Assessment: patient finally urinated after receiving the second bag of IV fluids. ED Septic Shock - . Is Septic Shock (SBP<90, OR Lactate>4 mmol\L) present?: No - <6hrs of presentation: Vital Signs: Vital Signs - 8 hr 09/02/18 09/02/18 09/02/18 15:24 15:48 15:52 Temp 98.2 F HR 84 RR 18 18 18 BP 114/82 123/75 127/72 O2 Sat % 96 97 98 09/02/18 09/02/18 15:57 17:18 Temp HR 87 RR 18 18 BP 120/75 137/80 O2 Sat % 79 97 ED Reassessment (Disposition) - Reassessment Reassessment Condition:: Improved - Diagnosis Diagnosis:: Dehydration Chronic kidney disease, s/p renal transplant Low magnesium Low phosphorous Contaminated urine vs. early urinary tract infection (will wait for urine culture results due to fact that there are at least 5 drug interactions with the most benign antibiotic). Patient to call for urine culture results in 2 days. PATIENT IS COMPLETELY ASYMPTOMATIC. - Aftercare/Follow up Instructions Aftercare/Follow-Up Instructions:: Refer to Discharge Instructions Notes:: follow up with primary care physician. patient to call back in 2 days to find out his urine culture results. Medication Prescribed:: NONE - Patient Disposition Discharge/Transfer:: Home Condition at Disposition:: Stable, Improved
[2018-09-02 17:46] LABS: AMPHETAMINE URINE NEGATIVE (NEGATIVE); BARBITURATES URINE NEGATIVE (NEGATIVE); BENZODIAZEPINES QUAL URINE NEGATIVE (NEGATIVE); CANNABINOID THC NEGATIVE (NEGATIVE); COCAINE METABOLITE QUAL URINE NEGATIVE (NEGATIVE); METHADONE URINE NEGATIVE (NEGATIVE); METHAMPHETAMINES QUAL URINE NEGATIVE (NEGATIVE); OPIATES (MORPHINE) QUAL. URINE NEGATIVE (NEGATIVE); PHENCYCLIDINE (PCP) URINE NEGATIVE (NEGATIVE); TRICYCLICS (TCA) QUAL. URINE NEGATIVE (NEGATIVE)
== END 2018-09-02 18:17 | disposition home or self-care (01) ==
LOC: ER 15:16
DX: E86.0 Dehydration (principal); N18.9 Chronic kidney disease, unspecified; E83.42 Hypomagnesemia; E83.39 Other disorders of phosphorus metabolism; Z94.0 Kidney transplant status; Z88.0 Allergy status to penicillin; Z88.1 Allergy status to other antibiotic agents; Z88.2 Allergy status to sulfonamides; Z88.8 Allergy status to other drugs, medicaments and biological substances
CPT/HCPCS: 36415-UA; 80053-TC; 80307; 81001-TC; 83735-TC; 84100-TC; 85025-TC

== ENCOUNTER 2018-12-09 16:41 | Emergency (ER) | payer MEDICAID | END 2018-12-09 17:15 | disposition left against medical advice (07) | LOC: ER 16:41 | DX: Z53.21 Procedure and treatment not carried out due to patient leaving prior to being seen by health care provider (principal) ==

== ENCOUNTER 2019-04-25 14:20 | Emergency (ER) | payer MEDICAID ==
--- NOTE | 2019-04-25 15:01 | ED Physician Chart ---
ED Chief Complaint/HPI - Patient Information Date Seen:: 04/25/19 Time Seen:: 14:50 Chief Complaint:: anorexia History of Present Illness:: Patient's had anorexia for 4 days. He thinks he is dehydrated. He attributes his anorexia to his antirejection medications he takes for his kidney transplant. Allergies:: Allergies Allergy/AdvReac Type Severity Reaction Status Date / Time amoxicillin Allergy Verified 12/09/18 17:12 azithromycin Allergy Verified 12/09/18 17:12 escitalopram [From Lexapro] Allergy Verified 12/09/18 17:12 lorazepam Allergy Verified 12/09/18 17:12 sulfamethizole Allergy Verified 12/09/18 17:12 Vitals:: Vital Signs - 8 hr 04/25/19 14:36 Temp 97.4 F HR 87 RR 18 BP 130/86 O2 Sat % 98 Historian:: Patient ED Review of Systems - Review of Systems General/Constitutional: No fever, No chills Skin: No skin lesions Head: No headache ENT: No earache Neck: No neck pain, No swelling Cardio Vascular: No chest pain, No palpitations Pulmonary: No SOB GI: No nausea, No vomiting, Other (anorexia) G/U: No dysuria Musculoskeletal: No bone or joint pain Endocrine: No polyuria Psychiatric: No prior psych history Hematopoietic: No bruising ED Past Medical History - Past Medical History Past Medical History: Other (polycystic kidney disease) Family History: Other (grandfather had polycystic kidney disease) Social History: Other (former smoker and drinker of alcohol) Surgical History: other (kidney transplant 10 years ago) Psychiatricy History: None Family Medical History - Family Member Mother History Unknown: Yes Ethnicity: ED Physical Exam - Physical Examination General/Constitutional: Well-developed, well-nourished, Alert, No distress Head: Atraumatic Eyes: Lids, conjuctiva normal Skin: Nl inspection, No rash ENMT: External ears, nose nl, TM canals nl, Nasal exam nl, Lips, teeth, gums nl , Oropharynx nl, Tonsils nl Neck: No nuchal rigidity Respiratory: Nl effort/Exclusion, Clear to Auscultation Cardio Vascular: RRR, No murmur, gallop, rubs, NL S1 S2 GI: No tenderness/rebounding/guarding, No organomegaly, No hernia, Normal BS's, No McBurney tenderness Extremities: Normal digits & nails Neuro/Psych: No focal deficits ED Labs/Radiology/EKG Results - Lab Results Results: Laboratory Results WBC 5.4 Th/cmm (4.8-10.8) 04/25/19 15:00 RBC 5.02 Mil/cmm (4.30-5.70) 04/25/19 15:00 Hgb 14.1 gm/dL (12-16) 04/25/19 15:00 Hct 42.6 % (41.0-60) 04/25/19 15:00 MCV 84.8 fl (80-99) 04/25/19 15:00 MCH 28.1 pg (26.0-30.0) 04/25/19 15:00 MCHC Differential 33.2 pg (28.0-36.0) 04/25/19 15:00 RDW 13.0 % (11.5-20.0) 04/25/19 15:00 Plt Count 163 Th/cmm (150-400) 04/25/19 15:00 MPV 7.5 fl 04/25/19 15:00 Neutrophils % 77.2 % (40.0-80.0) 04/25/19 15:00 Lymphocytes % 13.3 % (20.0-50.0) L 04/25/19 15:00 Monocytes % 7.9 % (2.0-10.0) 04/25/19 15:00 Eosinophils % 1.6 % (0.0-5.0) 04/25/19 15:00 Basophils % 0.0 % (0.0-2.0) 04/25/19 15:00 Sodium 138 mEq/L (136-145) 04/25/19 15:00 Potassium 3.8 mEq/L (3.5-5.1) 04/25/19 15:00 Chloride 108 mEq/L (98-107) H 04/25/19 15:00 Carbon Dioxide 20.2 mEq/L (21.0-31.0) L 04/25/19 15:00 Anion Gap 13.6 (7.0-16.0) 04/25/19 15:00 BUN 21 mg/dL (7-25) 04/25/19 15:00 Creatinine 1.6 mg/dL (0.7-1.3) H 04/25/19 15:00 Est GFR ( Amer) > 60.0 ml/min (>90) 04/25/19 15:00 Est GFR (Non-Af Amer) 51.1 ml/min 04/25/19 15:00 BUN/Creatinine Ratio 13.1 04/25/19 15:00 Glucose 102 mg/dL (70-105) 04/25/19 15:00 Calcium 9.7 mg/dL (8.6-10.3) 04/25/19 15:00 ED Assessment - Assessment General Assessment: Patient feels he is dehydrated (although lab tests do not show dehydration) and wishes to receive 2 L of normal saline intravenously. After the IV infusion patient to be discharged. ED Septic Shock - . Is Septic Shock (SBP<90, OR Lactate>4 mmol\L) present?: No - <6hrs of presentation: Vital Signs: Vital Signs - 8 hr 04/25/19 14:36 Temp 97.4 F HR 87 RR 18 BP 130/86 O2 Sat % 98 ED Reassessment (Disposition) - Reassessment Reassessment Condition:: Improved - Diagnosis Diagnosis:: Anorexia; status post renal transplant; history of polycystic kidney disease - Aftercare/Follow up Instructions Aftercare/Follow-Up Instructions:: Refer to Discharge Instructions - Patient Disposition Discharge/Transfer:: Home Condition at Disposition:: Stable, Improved
[2019-04-25 15:25] LABS: % EOSINOPHILS 1.6 % (0.0-5.0); % MONOCYTES 7.9 % (2.0-10.0); % NEUTROPHILS 77.2 % (40.0-80.0); EOSINOPHILE ABSOLUTE 0.1 Th/cmm (0.1-0.4); HEMATOCRIT 42.6 % (41.0-60); LYMPHOCYTE ABSOLUTE 0.7 Th/cmm (1.5-3.0); MONOCYTE ABSOLUTE 0.4 Th/cmm (0.3-1.0)
[2019-04-25 15:27] LABS: % LYMPHOCYTES 13.3 % (20.0-50.0); HEMOGLOBIN 14.1 gm/dL (12-16); MEAN CELL VOLUME 84.8 fl (80-99); MEAN CORPUSCULAR HEMOGLOBIN 28.1 pg (26.0-30.0); MEAN CORPUSCULAR HGB CONC 33.2 pg (28.0-36.0); NEUTROPHILE ABSOLUTE 4.2 Th/cmm (1.8-8.0); PLATELET COUNT 163 Th/cmm (150-400); RED BLOOD COUNT 5.02 Mil/cmm (4.30-5.70); WHITE BLOOD COUNT 5.4 Th/cmm (4.8-10.8)
[2019-04-25 15:48] LABS: ANION GAP 13.6 (7.0-16.0); BUN - UREA NITROGEN 21 mg/dL (7-25); CALCIUM SERUM 9.7 mg/dL (8.6-10.3); CARBON DIOXIDE 20.2 mEq/L (21.0-31.0); CHLORIDE 108 mEq/L (98-107); CREATININE - SERUM 1.6 mg/dL (0.7-1.3); GFR AFRICAN-AMERICAN > 60.0 ml/min (>90); GFR NON AFRICAN-AMERICAN 51.1 ml/min; GLUCOSE 102 mg/dL (70-105); POTASSIUM SERUM 3.8 mEq/L (3.5-5.1); SODIUM SERUM 138 mEq/L (136-145)
[2019-04-25 16:05] LABS: URINE SOURCE RANDOM
[2019-04-25] MEDS ORDERED: Sodium Chloride 0.9% 1,000 ML IV ONE ×2 (16:06→16:40)
[2019-04-25 16:09] LABS: URINE BILIRUBIN NEGATIVE (NEGATIVE); URINE BLOOD NEGATIVE (NEGATIVE); URINE GLUCOSE (UA) NEGATIVE (NEGATIVE); URINE KETONE NEGATIVE (NEGATIVE); URINE LEUKOCYTE ESTERASE NEGATIVE (NEGATIVE); URINE MICROSCOPIC INDICATED? YES; URINE NITRATE NEGATIVE (NEGATIVE); URINE PH 7.5 (4.6 - 8.0); URINE PROTEIN TRACE mg/dL (NEGATIVE); URINE UROBILINOGEN 0.2 E.U./dL (0.2 - 1.0)
[2019-04-25 16:22] LABS: URINE BACTERIA FEW /hpf (NONE SEEN); URINE CLARITY CLEAR (CLEAR); URINE COLOR YELLOW; URINE EPITHELIAL CELLS NONE SEEN /lpf (FEW); URINE RBC 0-2 /hpf (0-5); URINE WBC 0-2 /hpf (0-5)
== END 2019-04-25 17:28 | disposition home or self-care (01) ==
LOC: ER 14:20
DX: R63.0 Anorexia (principal); Q61.3 Polycystic kidney, unspecified; E86.0 Dehydration; Z88.1 Allergy status to other antibiotic agents; Z88.2 Allergy status to sulfonamides; Z88.8 Allergy status to other drugs, medicaments and biological substances; Z87.891 Personal history of nicotine dependence; Z94.0 Kidney transplant status
CPT/HCPCS: 36415-UA; 80048-TC; 81001-TC; 85025-TC; J7030; Z7502